=== PATIENT | male | born 1990 | race Two or more races ===

== ENCOUNTER 2016-11-09 23:40 | Emergency (ER) | payer BC, MEDICAID ==
[~2016-11-09] VITALS: Ht 172.7 cm; Wt 63.5 kg
[2016-11-09] MEDS ORDERED: LATUDA20 MG PO (23:51)
[2016-11-09] MEDS ORDERED: TRILEPTAL300 MG PO (23:51)
[2016-11-09 23:52] VITALS: BP 103/66
[2016-11-10] MEDS ORDERED: Lidocaine 2% Visc 15ml soln ORAL ONE
[2016-11-10] MEDS ORDERED: Bicillin LA 1.2 Million Units Syr IM ONE
[2016-11-10] MEDS ORDERED: LIDOCAINE VISCO20 ML PO (00:02)
[2016-11-10 00:25] VITALS: BP 103/66
--- NOTE | 2016-11-10 01:42 | Emergency Room Report ---
History of Present Illness General Chief Complaint: Sore Throat Source: Patient Present Illness HPI Patient's 25-year-old male who presented after increased sore throat. Patient gradual onset of symptoms. Patient prior history of tonsillitis in the past. The patient noted have increased difficulty swallowing. He denied any change in his voice. He denied any difficulty opening his mouth. The patient had any fever. He denied any headache. He denied neck stiffness. Patient was told he should have a tonsillectomy in the past. Allergies: Coded Allergies: No Known Allergies (Unverified , 11/09/16) Patient History Past Medical History: see triage record Reviewed Nursing Documentation: PMH: Agreed, PSxH: Agreed Nursing Documentation-PMH History Of Psychiatric Problem: Yes Review of Systems All Other Systems: negative except mentioned in HPI Physical Exam Vital Signs Date Time Temp Pulse Resp B/P Pulse Ox O2 Delivery O2 Flow Rate FiO2 11/09/16 23:45 97.9 90 18 103/66 96 Room Air General Appearance: well appearing, no apparent distress, alert, GCS 15 Head: normocephalic, atraumatic ENT: hearing grossly normal, normal voice, uvula midline, tonsillar swelling - erythema Neck: full range of motion, supple Respiratory: no respiratory distress, speaking full sentences Cardiovascular #1: normal inspection, regular rate, rhythm Gastrointestinal: normal inspection, non tender, soft Musculoskeletal: normal inspection, digits/nails normal, no calf tenderness Neurologic: normal inspection, alert, oriented x3, responsive, transport engineer III-XII nml as tested, motor strength/tone normal, normal gait Psychiatric: mood/affect normal Skin: no rash Medical Decision Making Diagnostic Impression: Primary Impression: Acute tonsillitis ER Course Patient presented for sore throat. Differential diagnosis included but was not limited to meningitis, exudative tonsillitis, retropharyngeal abscess, epiglottitis, strep pharyngitis. Patient's benign exam and does not appear to require any further imaging or laboratory testing at this time. Patient was given IM penicillin. He was given viscous lidocaine for pain. The patient is advised followup with his surgeon. Patient is advised to return if any worsening condition or if any changes in status that are concerning. Last Vital Signs Date Time Temp Pulse Resp B/P Pulse Ox O2 Delivery O2 Flow Rate FiO2 11/10/16 00:25 97.9 84 18 103/66 96 Room Air Status: improved Disposition: HOME, SELF-CARE Condition: Stable Scripts Lidocaine HCl (Lidocaine HCl Viscous) 100 Ml Solution 20 ML PO THREE TIMES A DAY for For Pain, #200 ML Prov: Yovanny Hammond 11/10/16 Referrals: NOT CHOSEN [facility]/MD,REFERRING (PCP) Patient Instructions: Tonsillitis Yovanny Hammond November 10, 2016 01:42
== END 2016-11-10 00:25 | disposition home or self-care (01) ==
LOC: EMR 23:59
DX: J03.90 Acute tonsillitis, unspecified (principal)
CPT/HCPCS: 96372; 99283; J0570; J0561